=== PATIENT | male | born 1955 | race Caucasian/White ===

== ENCOUNTER 2017-08-16 12:33 | Emergency (ER) | payer OTHER ==
[2017-08-16 12:49] VITALS: TEMP 96.1
--- NOTE | 2017-08-16 12:53 | ED.PDOC ---
History of Present Illness - General Chief Complaint: Respiratory Problem Stated Complaint: cough,congestion Time Seen by Provider: 08/16/17 12:51 Source: patient, RN notes reviewed, Vital Signs reviewed, family Additional Information: Pt states he has had a cold/URI for the past 2 weeks with a non-productive cough. For the past week he has had pain right underneath his clavicles,both elbows and shoulder blades -this pain is relieved with Alleve. Pt thinks his pain is pleuritic. [facility] and sent here due to concern for chest pain. Patient is pain free and in no distress. No diaphoresis. - History of Present Illness Timing/Duration: 1 week, resolved prior to arrival Severity: mild Improving Factors: medication - Alleve Worsening Factors: other - coughing Associated Symptoms: chest pain - -pleuritic, cough Allergies/Adverse Reactions: Allergies NO KNOWN ALLERGY Allergy (Verified 08/16/17 12:49) Home Medications: Ambulatory Orders Amlodipine Besylate 10 mg PO DAILY 08/16/17 Losartan Potassium & Hydrochlo [Hyzaar 100-25 mg] 1 tab PO DAILY 08/16/17 Review of Systems - Review of Systems Constitutional: States: no symptoms reported EENTM: States: no symptoms reported Respiratory: States: cough Cardiology: States: chest pain - intermittent and pleuritic in nature - mostly subclavicular in location. currently pain free Gastrointestinal/Abdominal: States: no symptoms reported Genitourinary: States: no symptoms reported Musculoskeletal: States: see HPI Skin: States: no symptoms reported Neurological: States: no symptoms reported Endocrine: States: no symptoms reported Hematologic/Lymphatic: States: no symptoms reported Past Medical History (General) - Patient Medical History Hx Stroke: No Hx Congestive Heart Failure: No Hx Hypertension: Yes Hx Diabetes: No - Vaccination History Hx Influenza Vaccination: Yes Hx Pneumococcal Vaccination: Yes - Social History Hx Tobacco Use: Yes Family Medical History - Family History Father Family History: Unknown Living Status: Unknown Physical Exam - Physical Exam General Appearance: Alert, Comfortable, No apparent distress, Well Developed, Well Groomed, Well Hydrated, Well Nourished Eye Exam: bilateral normal Ears, Nose, Throat: hearing grossly normal, normal ENT inspection Neck: non-tender, full range of motion, supple, normal inspection Respiratory: lungs clear, normal breath sounds, no respiratory distress, no accessory muscle use Cardiovascular/Chest: normal peripheral pulses, regular rate, rhythm, no edema, no murmur Gastrointestinal/Abdominal: non tender, soft Back Exam: normal inspection Extremity: normal range of motion, non-tender, normal inspection 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 However, since sent from Urgent Care due to concern for chest pain, will perform limited work-up with EKG and Cardiac Enzymes. Also , will obtain CXR to look for evidence of PNA or another cause for the cough. Pt afebrile and in no distress. No persistent cough on exam. DDx: PNA, Pleuritic chest pain, Viral and/or Allergic Bronchitis, doubt ACS. 08/16/17 14:04 Labs consistent with ACS. Patient remains asymptomatic. Upon further questioning he reports diaphoresis associated with 20 minute episode of subclavicular and back pain which resolved within 20 minutes with rest and Alleve. Repeat EKG without ST elevation. This appears to be an NSTEMI. Patient reports 3 to 4 episodes in the past few weeks - likely unstable Angina. 08/16/17 14:24 I discussed the standard of care treatment plan for patient would be to transport him via ambulance to a hospital with a [facility]. Patient declined ambulance transport and decided to leave AMA so he can drive back to [facility]. He said he would be going to the [facility] in [place], [place] which is about a [address] from here. Patient signed the AMA form and was discharged so he could start his trip to [place]. Patient in no acute distress at time of discharge AMA. - Results/Orders Results/Orders: 08/16/17 13:00 EKG STAT 08/16/17 13:17 CARDIAC ENZYME GROUP Stat 08/16/17 14:10 Aspirin 325 mg PO ONCE ONE Laboratory Results - last 24 hr 08/16/17 08/16/17 08/16/17 13:17 13:17 13:17 WBC 8.3 RBC 5.62 Hgb 15.8 Hct 47.5 MCV 84.6 MCH 28.2 MCHC 33.3 RDW 12.7 Plt Count 203 MPV 11.3 H Absolute Neuts (auto) 5.70 Absolute Lymphs (auto) 1.60 Absolute Monos (auto) 0.70 Absolute Eos (auto) 0.30 Absolute Basos (auto) 0.10 Neutrophils % 68.2 Lymphocytes % 18.9 L Monocytes % 8.6 Eosinophils % 3.1 Basophils % 1.2 Sodium 141 Potassium 4.1 Chloride 106 Carbon Dioxide 26 Anion Gap 13.1 BUN 21 H Creatinine 0.96 BUN/Creatinine Ratio 21.9 H Random Glucose 116 H Serum Osmolality 285.2 Calcium 10.0 Total Bilirubin 0.7 AST 50 H ALT 65 H Alkaline Phosphatase 44 Troponin I 0.58 H* Serum Total Protein 7.9 Albumin 4.7 Globulin 3.2 Albumin/Globulin Ratio 1.5 - EKG/XRAY/CT EKG: Sinus - 67 bpm, no ST T wave changes XRAY: chest - no acute pulmonary process - Additional EKG/XRAY/Consults EKG #2: Sinus - 65 bpm, no ST T wave changes Departure - Departure Clinical Impression: Acute coronary syndrome Time of Disposition: 14:22 Disposition: Left Against Medical Advice Condition: Good Departure Forms: ED Discharge - Pt. Copy, Patient Portal Self Enrollment Instructions: DI for Acute Coronary Syndrome Home Medications: Ambulatory Orders Amlodipine Besylate 10 mg PO DAILY 08/16/17 Losartan Potassium & Hydrochlo [Hyzaar 100-25 mg] 1 tab PO DAILY 08/16/17 Additional Instructions: You have evidence of a blockage in your heart. You need to be seen by a [facility] today and you should be transferred to a facility with a [facility]. You have decided to decline an ambulance transfer. I spoke with a physician at [facility] in [place] to give them a heads up about your pending arrival. Go straight to [facility].
--- NOTE | 2017-08-16 13:10 | RAD ---
Procedure: XR CHEST 2 VIEWS Exam Date: 08/16/2017 12:52 PM [facility] Ordering Provider: Jhonathan Tello Clinical Indication: chest congestion and cough Comparison: None Findings: The lungs are clear and well-aerated. No pleural effusion or pneumothorax. Cardiac silhouette is normal in size. Impression: No acute pulmonary process. Electronically signed by: Ethan Sherwood MD 08/16/2017 1:09 PM [facility]
[2017-08-16] MEDS ORDERED: ASPIRIN TABLET 325 MG TAB ONE (13:55)
[2017-08-16 14:04] VITALS: BP 153/83; O2SAT 97
[2017-08-16] MEDS ORDERED: ASPIRIN TABLET 325 MG TAB PO ONE (14:10)
== END 2017-08-16 14:24 | disposition left against medical advice (07) ==
LOC: ER 12:33
DX: I24.9 Acute ischemic heart disease, unspecified (principal); I10 Essential (primary) hypertension; Z87.891 Personal history of nicotine dependence